=== PATIENT | female | born 1985 | race Caucasian/White ===

== ENCOUNTER 2021-10-06 17:57 | Emergency (ER) | payer OTHER, SELFPAY ==
--- NOTE | ~2021-10-06 | XR_ITS ---
Indication: Injury pain EXAMINATION: Left ankle, left knee. 3 views of the left ankle does not show evidence for fracture or dislocation. There is soft tissue swelling most noted laterally. 4 views left knee do not demonstrate evidence for an acute fracture or dislocation. Mild degenerative changes. XR/XR ankle LT min 3V IMPRESSION: No acute fracture or dislocation left ankle, left knee.
--- NOTE | ~2021-10-06 | US_ITS ---
EXAMINATION: US VENOUS ULTRASOUND WITH DOPPLER LOWER EXTREMITY, LEFT CLINICAL INFORMATION: Left lower extremity pain COMPARISON: None TECHNIQUE: Ultrasound of the deep veins is performed from the hip to the calf with compression sonography and color and pulse Doppler assessment. Spectral analysis with color-flow imaging is performed. FINDINGS: There is normal venous compression and respiratory variation and augmented flow. The visualized common femoral vein, superficial femoral vein, profunda femoral vein, popliteal vein, and the trifurcation region shows no evidence of deep venous thrombosis. There is no significant popliteal fossa cyst. A 2.0 x 0.8 x 1.7 cm left groin lymph node is present with normal morphology and large fatty jody. If the patient's symptoms persist, followup ultrasound in 5 days 7 days might be of value to exclude proximal propagation from a non-visualized calf vein. US/US venous duplex LE IMPRESSION: No DVT demonstrated in the left lower extremity.
--- NOTE | ~2021-10-06 | XR_ITS ---
Indication: Injury pain EXAMINATION: Left ankle, left knee. 3 views of the left ankle does not show evidence for fracture or dislocation. There is soft tissue swelling most noted laterally. 4 views left knee do not demonstrate evidence for an acute fracture or dislocation. Mild degenerative changes. XR/XR knee LT 4V IMPRESSION: No acute fracture or dislocation left ankle, left knee.
[2021-10-06 19:12] VITALS: BP 124/89; PULSE 77; RESP 16; TEMP 37.2; O2SAT 99; BMI 33.3
--- NOTE | 2021-10-06 19:15 | ED_ITS ---
HPI - Extremity Injury (Lower) General Chief Complaint: Extremity Injury, Lower Stated Complaint: swollen ankle Time Seen by Provider: 10/06/21 19:15 Source: patient Mode of arrival: ambulatory Limitations: no limitations History of Present Illness HPI Narrative: 36 ya healthy female presents to the ER from home for evaluation of left lower leg swelling and bruising after an injury about 10 days ago. She states she was playing softball with her daughter when she tripped over her leg and fell onto her left side. She had some pain to the proximal aspect of the lower leg but the pain was mild and she did not think anything of it at the time. Several days after the injury 6 started developing bruising and swelling to the entire left lower leg including the ankle. She reports new swelling of the ankle. She has some tenderness and pain to the lateral aspect of the lower leg. No pain with ambulating. No numbness or tingling. No weakness. She is not on ASA, NSAIDS, or blood thinners. MD complaint: ankle injury Onset (ago): day(s) Injury: Left: knee, ankle and foot Type of Injury: blunt Place: street/outdoors Severity: mild Severity scale (1-10): 2 Relieving factors: immobilization Exacerbating factors: palpation Context: fall Associated symptoms: ambulatory Other symptoms: none Related Data Allergies Allergy/AdvReac Type Severity Reaction Status Date / Time No Known Allergies Allergy Verified 10/06/21 19:17 Review of Systems Review of Systems: Constitutional: No Fever, No Chills s Cardiovascular: No Chest Pain, No SOB Gastrointestinal: No Nausea, No Vomiting, No abdominal Pain Musculoskeletal: No joint pain, + Myalgias Skin: No Skin Lesions, No rash Neuro: No Weakness, No Numbness Heme/Lymph: + Bruising, No Lymphadenopathy PMFSH Social History Social History Advance Directives: No Patient : No Physical Exam Vital Signs: Vital Signs: Last Vital Signs Temp 99 F 10/06/21 19:12 Pulse 77 10/06/21 19:12 Resp 16 10/06/21 19:12 BP 124/89 10/06/21 19:12 Pulse Ox 99 10/06/21 19:12 BMI result Body Mass Index 33.3 Appearance: Alert. Oriented X3. No acute distress. HEENT: normal inspection CVS: Normal heart rate and rhythm. Pulses normal. Respiratory: No respiratory distress. Skin: Skin warm and dry. Normal skin color. Normal skin turgor. No rashes. Extremities: Left lower leg with scattered ecchymosis in various stages of healing, ecchymotic areas are located on the anterior and lateral aspects of the entire lower leg, knee, ankle. She has normal range of motion of the ankle and knee. No point tenderness. Compartments are soft compressible. Foot is warm and well perfused. Neurovascularly intact with good cap refill. No tenderness of the calf. Neuro: Oriented X 3. No motor deficit. No sensory deficit. Ambulatory with steady gait Course Course Course Narrative: 36-year-old female presenting to the ER with ecchymosis and swelling of the left lower leg 10 days after a fall injury. She is not on blood thinners. Exam reveals soft compressible compartments. She reports intermittent pain in the p opliteal area and proximal thigh in the posterior aspect with no evidence of bruising or injury there, will get lower extremity Doppler to rule out DVT. Will also get injuries to assess for occult fracture. Reevaluation(s) Reevaluation #1: Lower extremity Dopplers negative for DVT. X-rays are negative for acute fracture. Leg was wrapped Samuel for compression and support. She is stable for discharge home with outpatient follow-up p.r.n.. Discharge Plan Discharge Clinical Impression: Contusion of left lower extremity Patient Disposition: Home, Self-Care Instructions: Contusion in Adults (ED), Ecchymosis (ED) Additional Instructions: Your x-rays today were normal. Your ultrasound did not show any evidence of a blood clot. Recommend elevating her leg when possible, apply ice several times as needed for pain. You can wear the Samuel wrap as needed for compression and support. Follow-up with your doctor as needed.
== END 2021-10-06 21:18 | disposition home or self-care (01) ==
PROVIDERS: Emergency Provider Emergency Medicine Emergency Medical Services
DX: S80.12XA Contusion of left lower leg, initial encounter (principal); M79.605 Pain in left leg; W01.0XXA Fall on same level from slipping, tripping and stumbling without subsequent striking against object, initial encounter; Y93.64 Activity, baseball; Y92.89 Other specified places as the place of occurrence of the external cause; Y99.9 Unspecified external cause status
CPT/HCPCS: 73564; 73610; 93971; 99283; 99284